=== PATIENT | female | born 1990 | race American Indian/Alaskan Native ===

== ENCOUNTER 2016-07-27 14:20 | Emergency (ER) | payer OTHER ==
[2016-07-27 14:20] VITALS: BMI 21.2
[2016-07-27 14:28] VITALS: TEMP 98.5
[2016-07-27] MEDS ORDERED: Sodium Chloride 0.9% 1,000 ML IV STA (14:41)
--- NOTE | 2016-07-27 14:44 | ED PDOC ---
Arrival/HPI - General Chief Complaint: Abdominal Pain Time Seen by Provider: 07/27/16 14:30 Historian: Patient - History of Present Illness Narrative History of Present Illness (Text): 07/27/16 14:41 26 year old female presents to the emergency department with left lower abdominal pain since this morning. Patient describes it as a crampy pain that does not radiate to other areas. She reports last bowel movement this morning which was normal. LMP 4/5. Denies new foods. Denies urinary changes, vaginal bleeding, fever, nausea, vomiting, or diarrhea. No other complaints at this time. PMD: Dr. Bradley Yuan Time/Duration: 24 hours Symptom Onset: Sudden Symptom Course: Unchanged Modifying Factors (Text): None Associated Symptoms (Text): None Past Medical History - Provider Review Nursing Documentation Reviewed: Yes - Infectious Disease Hx of Infectious Diseases: None - Psychiatric Hx Substance Use: No - Surgical History Hx Section: Yes (x 1) - Anesthesia Hx Anesthesia: Yes Hx Anesthesia Reactions: No Hx Malignant Hyperthermia: No Family/Social History - Physician Review Nursing Documentation Reviewed: Yes Family/Social History: Unknown Family HX Smoking Status: Never Smoked Hx Alcohol Use: Yes Frequency of alcohol use: Socially Hx Substance Use: No Allergies/Home Meds Allergies/Adverse Reactions: Allergies No Known Allergies Allergy (Verified 07/27/16 14:28) Review of Systems - Physician Review All systems were reviewed & negative as marked: Yes - Review of Systems Constitutional: absent: Fevers Cardiovascular: absent: Chest Pain Gastrointestinal: Abdominal Pain (left lower). absent: Stool Changes, Diarrhea , Nausea, Vomiting Genitourinary Female: absent: Dysuria, Frequency, Hematuria, Vaginal Bleeding, Vaginal Discharge Musculoskeletal: absent: Back Pain Physical Exam Vital Signs Reviewed: Yes Vital Signs Temp Pulse Resp BP Pulse Ox 07/27/16 15:44 87 16 97/74 L 96 07/27/16 14:24 98.5 F 86 20 112/72 99 Temperature: Afebrile Blood Pressure: Normal Pulse: Regular Respiratory Rate: Normal Appearance: Positive for: Well-Appearing, Non-Toxic, Uncomfortable Pain Distress: Moderate Mental Status: Positive for: Alert and Oriented X 3 - Systems Exam Head: Present: Atraumatic, Normocephalic Pupils: Present: PERRL Extroacular Muscles: Present: EOMI Conjunctiva: Present: Normal Mouth: Present: Moist Mucous Membranes Neck: Present: Normal Range of Motion Respiratory/Chest: Present: Clear to Auscultation, Good Air Exchange. No: Respiratory Distress, Accessory Muscle Use Cardiovascular: Present: Regular Rate and Rhythm, Normal S1, S2. No: Murmurs Abdomen: Present: Tenderness (left lower quadrant tenderness to palpation), Normal Bowel Sounds. 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 No: Vaginal Discharge, Vaginal Bleeding, Vaginal Lesions, Adenexal Tenderness, Adenexal Mass, Cervical Motion Tendernes Back: Present: Normal Inspection Upper Extremity: Present: Normal Inspection. No: Cyanosis, Edema Lower Extremity: Present: Normal Inspection. No: Edema Neurological: Present: GCS=15, CN II-XII Intact, Speech Normal Skin: Present: Warm, Dry, Normal Color. No: Rashes Psychiatric: Present: Alert, Oriented x 3, Normal Insight, Normal Concentration Medical Decision Making ED Course and Treatment: Impression: 26 year old female presents with left lower quadrant pain since this morning. Differential Diagnosis included but are not limited to: Ovarian torsion vs ovarian cyst/abscess Plan: -- US transvaginal -- IV fluids -- Labs -- Reassess and disposition Prior Visits: Notes and results from previous visits were reviewed. Patient last seen in ED on 11/17/15 with suprapubic pain and discharged home. Progress Notes: 07/27/16 16:[address], wishes to be discharged home. Advised patients on the risks of signing out against medical advice. Leaving Against Medical Advice (AMA): The patient is choosing to leave against medical advice. I have personally explained to the patient that choosing to do so may result in permanent bodily harm or . I have discussed at great length that without further evaluation and monitoring there may be unforeseen circumstances and/or deterioration causing permanent bodily harm or as a result of their choice. The patient is alert, oriented, and shows the mental capacity to make clear decisions regarding the patients health care at this time. The patient continues to wish to leave against medical advice. In light of the patients decision to leave against medical advice, follow-up has been arranged and the patient is aware of the importance to following up as instructed. The patient has been advised that they should return to the emergency room immediately if they change their mind at any time, or if their condition begins to change or worsen in any way. - Lab Interpretations Lab Results: 07/27/16 14:35 07/27/16 14:35 Lab Results 07/27/16 14:35: WBC 8.5 D, RBC 3.94, Hgb 12.3, Hct 35.4 L, MCV 89.8, MCH 31.2, MCHC 34.7, RDW 12.8, Plt Count 257, MPV 10.0, Gran % 78.3 H, Lymph % (Auto) 12.9 L, [place] % (Auto) 8.2 H, Eos % (Auto) 0.4 L, Baso % (Auto) 0.2, Gran # 6.66 H, Lymph # 1.1 L, [place] # 0.7 H, Eos # 0.0, Baso # 0.02, Sodium 138, Potassium 3.9, Chloride 101, Carbon Dioxide 27, Anion Gap 14, BUN 14, Creatinine 0.8, Est GFR ( Amer) > 60, Est GFR (Non-Af Amer) > 60, Random Glucose 77, Calcium 9.4, Total Bilirubin 1.3, AST 27, ALT 26, Alkaline Phosphatase 64, Total Protein 8.0, Albumin 4.0, Globulin 3.9, Albumin/Globulin Ratio 1.0 L 07/27/16 14:30: Urine Color Yellow, Urine Appearance Sl cloudy, Urine pH 7.0, Ur Specific [place] 1.025, Urine Protein 100 H, Urine Glucose (UA) Negative, Urine Ketones Negative, Urine Blood Negative, Urine Nitrate Negative, Urine Bilirubin Negative, Urine Urobilinogen 1.0 H, Ur Leukocyte Esterase Small H, Urine RBC Negative, Urine WBC 2 - 5, Ur Epithelial Cells 4 - 5, Urine Bacteria Few I have reviewed the lab results: Yes Interpretation: All labs normal - RAD Interpretation Narrative RAD Interpretations (Text): US Transvaginal Office Engineer : Theodora Cota MD FINDINGS: UTERUS: Measures 7.6 x 4.2 x 3.4 cm. ENDOMETRIUM: Measures 5 mm in diameter. CERVIX: No cervical abnormality identified. RIGHT OVARY: Measures 2.3 x 1.8 x 2.1 cm. Blood flow is demonstrated to the right ovary. LEFT OVARY: Measures 3.7 x 2.0 x 3.4 cm. 1.3 x 1.4 x 1.5 cm probable follicle/cyst. Blood flow is demonstrated to the left ovary. IMPRESSION: 1.5 cm probable left ovarian follicle/cyst. Otherwise unremarkable study as above. 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 - Medication Orders Current Medication Orders: Sodium Chloride (Sodium Chloride 0.9%) 1,000 mls @ 100 mls/hr IV .Q10H STA Stop: 07/28/16 00:40 Last Admin: 07/27/16 14:54 Dose: 100 MLS/HR eMAR Start Stop Document 07/27/16 14:54 SF (Rec: 07/27/16 14:54 SF [id number]) Intravenous Solution Start Date 07/27/16 Start Time 14:54 End Date 07/27/16 Discontinued Medications Ketorolac Tromethamine (Toradol) 30 mg IVP STAT STA Stop: 07/27/16 14:44 Last Admin: 07/27/16 14:55 Dose: 30 MG IVP Administration Document 07/27/16 14:55 SF (Rec: 07/27/16 14:55 SF [id number]) Charges for Administration # of IVP Administrations 1 - Scribe Statement The provider has reviewed the documentation as recorded by the Susana Velazquez Provider Scribe Attestation: All medical record entries made by the Jaeiblinnette were at my direction and personally dictated by me. I have reviewed the chart and agree that the record accurately reflects my personal performance of the history, physical exam, medical decision making, and the department course for this patient. I have also personally directed, reviewed, and agree with the discharge instructions and disposition. Disposition/Present on Arrival - Present on Arrival Any Indicators Present on Arrival: No History of DVT/PE: No History of Uncontrolled Diabetes: No Urinary Catheter: No History of Decub. Ulcer: No History Surgical Site Infection Following: None - Disposition Have Diagnosis and Disposition been Completed?: Yes Diagnosis: Abdominal pain, Ovarian cyst Disposition Time: 16:12 Patient Plan: Discharge Patient Problems: Current Active Problems Problem Status Diagnosed Abdominal pain Acute Ovarian cyst Acute Condition: IMPROVED Additional Instructions: Ms Andersen, thank you for letting us take care of you today. Your provider was Dr. Mcmillan. You were treated for Left Abdominal Pain. The emergency medical care you received today was directed at your acute symptoms. If you were prescribed any medication, please fill it and take as directed. It may take several days for your symptoms to resolve. Return to the Emergency Department if your symptoms worsen, do not improve, or if you have any other problems. Please contact your doctor or call one of the physicians/clinics you have been referred to that are listed on the Patient Visit Information form that is included in your discharge packet. Bring any paperwork you were given at discharge with you along with any medications you are taking to your follow up visit. Our treatment cannot replace ongoing medical care by a primary care provider (PCP) outside of the emergency department. Thank you for allowing the [facility] team to be part of your care today. If you had an X-Ray or CT scan: A Radiologist will review the ED reading if any change in treatment is needed we will contact you. If you had a blood, urine, or wound culture: It will take several days for the results, if any change in treatment is needed we will contact you. If you had an STI test: It will take 48 hours for the results. Please call after 1 week if you have not heard back. Prescriptions: Ibuprofen [Motrin] 600 mg PO Q6 PRN #30 tab PRN Reason: Pain, Moderate (4-7) Referrals: Bradley Yuan MD [Primary Care Provider] - Follow up with primary Forms: WORK NOTE
[2016-07-27 14:48] LABS: ADD MANUAL DIFF? NO
[2016-07-27 14:51] LABS: BASO # 0.02 K/mm3 (0.0-2.0); BASO % 0.2 % (0.0-3.0); EOS % 0.4 % (1.5-5.0); GRAN # 6.66 (1.4-6.5); GRAN % 78.3 % (50.0-68.0); HEMATOCRIT 35.4 % (36.0-48.0); LYMPH # 1.1 (1.2-3.4); LYMPH % 12.9 % (22.0-35.0); MEAN CELL VOLUME 89.8 fL (80.0-105.0); MEAN CORPUSCULAR HEMOGLOBIN 31.2 pg (25.0-35.0); MEAN CORPUSCULAR HGB CONC 34.7 g/dl (31.0-37.0); MONO # 0.7 (0.1-0.6); MONO % 8.2 % (1.0-6.0); PLATELET COUNT 257 10^3/uL (120.0-450.0); RED CELL DISTRIBUTION WIDTH 12.8 % (11.5-14.5); WHITE BLOOD COUNT 8.5 10^3/ul (4.5-11.0)
[2016-07-27 15:02] LABS: ALKALINE PHOSPHATASE 64 U/L (38-133); ALT/SGPT 26 U/L (7-56); AST/SGOT 27 U/L (15-39); BILIRUBIN,TOTAL 1.3 mg/dL (0.2-1.3); BLOOD UREA NITROGEN 14 mg/dL (7-21); CALCIUM 9.4 mg/dL (8.4-10.5); CARBON DIOXIDE 27 mmol/L (21-33); CHLORIDE 101 mmol/L (98-107); GFR AFRICAN-AMERICAN > 60; GLUCOSE,RANDOM 77 mg/dL (70-110); POTASSIUM 3.9 mmol/L (3.6-5.0); SODIUM 138 mmol/L (132-148)
[2016-07-27 15:02] LABS: URINE BILIRUBIN NEGATIVE (NEGATIVE); URINE BLOOD NEGATIVE (NEGATIVE); URINE GLUCOSE (UA) NEGATIVE (NEGATIVE); URINE KETONE NEGATIVE (NEGATIVE); URINE LEUKOCYTE ESTERASE SMALL Leu/uL (NEGATIVE); URINE PROTEIN 100 mg/dL (<30 mg/dL)
[2016-07-27 15:07] LABS: URINE APPEARANCE SL CLOUDY (CLEAR); URINE COLOR YELLOW (YELLOW)
[2016-07-27 15:14] LABS: URINE BACTERIA FEW (NEG); URINE RBC NEGATIVE /hpf (0-2)
[2016-07-27 15:45] VITALS: BP 97/74; PULSE 87; RESP 16
--- NOTE | 2016-07-27 15:46 | US ---
HISTORY: LLQ tender r/o torsion r/o ovarian cyst/ abscess COMPARISON: Transvaginal pelvic ultrasound performed 11/17/15 TECHNIQUE: Real-time transabdominal pelvic ultrasound was performed. In addition a transvaginal pelvic ultrasound was necessary to better depict pelvic anatomy FINDINGS: UTERUS: Measures 7.6 x 4.2 x 3.4 cm. ENDOMETRIUM: Measures 5 mm in diameter. CERVIX: No cervical abnormality identified. RIGHT OVARY: Measures 2.3 x 1.8 x 2.1 cm. Blood flow is demonstrated to the right ovary. LEFT OVARY: Measures 3.7 x 2.0 x 3.4 cm. 1.3 x 1.4 x 1.5 cm probable follicle/cyst. Blood flow is demonstrated to the left ovary. FREE FLUID: No significant free fluid noted. OTHER FINDINGS: None. IMPRESSION: 1.5 cm probable left ovarian follicle/cyst. Otherwise unremarkable study as above.
[2016-07-27 16:17] VITALS: O2SAT 98
== END 2016-07-27 16:17 | disposition left against medical advice (07) ==
LOC: ED 14:20
DX: R10.32 Left lower quadrant pain (principal); N83.202 Unspecified ovarian cyst, left side
CPT/HCPCS: 76830; 80053; 81001; 85025; 87086; 87491; 87591; 96374; 99285; J1885; J7040

== ENCOUNTER 2017-01-05 19:37 | Emergency (ER) | payer OTHER ==
[2017-01-05 19:37] VITALS: BMI 21.2
[2017-01-05 19:52] VITALS: RESP 18; TEMP 98.3
[2017-01-05] MEDS ORDERED: Sodium Chloride 0.9% 1,000 ML IV STA (20:15)
[2017-01-05 20:30] LABS: URINE BILIRUBIN NEGATIVE (NEGATIVE); URINE BLOOD NEGATIVE (NEGATIVE); URINE GLUCOSE (UA) NEGATIVE (NEGATIVE); URINE KETONE NEGATIVE (NEGATIVE); URINE LEUKOCYTE ESTERASE NEGATIVE Leu/uL (NEGATIVE); URINE PROTEIN NEGATIVE mg/dL (<30 mg/dL); URINE UROBILINOGEN 0.2 E.U./dL (<1 E.U./dL)
[2017-01-05 20:41] LABS: URINE APPEARANCE CLEAR (CLEAR); URINE COLOR YELLOW (YELLOW)
[2017-01-05 20:56] LABS: HEMATOCRIT 33.8 % (36.0-48.0); MEAN CELL VOLUME 89.4 fl (80.0-105.0); MEAN CORPUSCULAR HGB CONC 34.6 g/dl (31.0-37.0); MEAN PLATELET VOLUME 9.7 fl (7.0-11.0); RED CELL DISTRIBUTION WIDTH 12.4 % (11.5-14.5); WHITE BLOOD COUNT 4.2 10^3/ul (4.5-11.0)
[2017-01-05 21:02] LABS: ALB/GLOB RATIO 1.3 (1.1-1.8); ALKALINE PHOSPHATASE 48 U/L (38-126); ALT/SGPT 14 U/L (7-56); AST/SGOT 25 U/L (14-36); BILIRUBIN,TOTAL 0.8 mg/dL (0.2-1.3); BLOOD UREA NITROGEN 14 mg/dL (7-21); CALCIUM 8.6 mg/dL (8.4-10.5); CARBON DIOXIDE 28 mmol/L (21-33); CHLORIDE 103 mmol/L (98-107); GFR AFRICAN-AMERICAN > 60; GLUCOSE,RANDOM 79 mg/dL (70-110); INR 0.96 (0.93-1.08); LIPASE 65 U/L (23-300); PARTIAL THROMBOPLASTIN TIME 29.5 Seconds (23.7-30.8); POTASSIUM 3.8 mmol/L (3.6-5.0); SODIUM 138 mmol/L (132-148); TOTAL PROTEIN 6.5 g/dL (5.8-8.3)
[2017-01-05] MEDS ORDERED: Iohexol 350 MG/100 ML VIAL ONE (21:26)
--- NOTE | 2017-01-05 21:32 | ED PDOC ---
Arrival/HPI - General Chief Complaint: Abdominal Pain Time Seen by Provider: 01/05/17 20:07 Historian: Patient - History of Present Illness Narrative History of Present Illness (Text): 01/05/17 20:10 Jessica Andersen is a 26 year old female who presents to the Emergency department complaining of constant right lower abdominal discomfort since yesterday afternoon. Patient states she has a history of ovarian cysts on that side and notes she gets this pain every so often. Patient denies any nausea, vomiting, diarrhea, urinary symptoms, vaginal discharge/bleeding, trauma, or any other complaints. PMD: Dr. Yuan Symptom Onset: Gradual Symptom Course: Unchanged Activities at Onset: Light Context: Home Past Medical History - Provider Review Nursing Documentation Reviewed: Yes - Infectious Disease Hx of Infectious Diseases: None - Reproductive Menopause: No - Cardiac Hx Cardiac Disorders: No - Pulmonary Hx Respiratory Disorders: No - Neurological Hx Neurological Disorder: No - HEENT Hx HEENT Disorder: No - Renal Hx Renal Disorder: No - Endocrine/Metabolic Hx Endocrine Disorders: No - Hematological/Oncological Hx Blood Disorders: No - Integumentary Hx Dermatological Disorder: No - Musculoskeletal/Rheumatological Hx Musculoskeletal Disorders: No - Gastrointestinal Hx Gastrointestinal Disorders: No - Genitourinary/Gynecological Hx Genitourinary Disorders: No - Psychiatric Hx Psychophysiologic Disorder: No Hx Substance Use: No - Surgical History Hx Section: Yes (x 1 2012) - Anesthesia Hx Anesthesia: Yes Hx Anesthesia Reactions: No Hx Malignant Hyperthermia: No Family/Social History - Physician Review Nursing Documentation Reviewed: Yes Family/Social History: Unknown Family HX Smoking Status: Never Smoked Hx Alcohol Use: Yes Hx Substance Use: No Allergies/Home Meds Allergies/Adverse Reactions: Allergies No Known Allergies Allergy (Verified 01/05/17 19:56) Review of Systems - Physician Review All systems were reviewed & negative as marked: Yes - Review of Systems Constitutional: Normal. absent: Fevers Eyes: Normal ENT: Normal Respiratory: Normal. absent: SOB, Cough Cardiovascular: Normal. absent: Chest Pain Gastrointestinal: Abdominal Pain. absent: Diarrhea, Nausea, Vomiting Genitourinary Female: Normal. absent: Dysuria, Frequency, Hematuria, Urine Output Changes Musculoskeletal: Normal. absent: Back Pain, Neck Pain Skin: Normal. absent: Rash Neurological: Normal. absent: Headache, Dizziness Endocrine: Normal Hemo/Lymphatic: Normal Psychiatric: Normal Physical Exam Vital Signs Reviewed: Yes Vital Signs Temp Pulse Resp BP Pulse Ox 01/05/17 23:37 84 18 137/72 99 01/05/17 19:49 98.3 F 80 18 108/56 L 100 Temperature: Afebrile Blood Pressure: Normal Pulse: Regular Respiratory Rate: Normal Appearance: Positive for: Well-Appearing, Non-Toxic, Comfortable Pain Distress: None Mental Status: Positive for: Alert and Oriented X 3 - Systems Exam Head: Present: Atraumatic, Normocephalic Pupils: Present: PERRL Extroacular Muscles: Present: EOMI Conjunctiva: Present: Normal Mouth: Present: Moist Mucous Membranes Neck: Present: Normal Range of Motion Respiratory/Chest: Present: Clear to Auscultation, Good Air Exchange. No: Respiratory Distress, Accessory Muscle Use Cardiovascular: Present: Regular Rate and Rhythm, Normal S1, S2. No: Murmurs Abdomen: Present: Tenderness (mild right lower), Normal Bowel Sounds. No: Distention, Peritoneal Signs, Rebound Back: Present: Normal Inspection Upper Extremity: Present: Normal Inspection. No: Cyanosis, Edema Lower Extremity: Present: Normal Inspection. No: Edema Neurological: Present: GCS=15, CN II-XII Intact, Speech Normal Skin: Present: Warm, Dry, Normal Color. No: Rashes Psychiatric: Present: Alert, Oriented x 3, Normal Insight, Normal Concentration Medical Decision Making ED Course and Treatment: 01/05/17 20:10 Impression: 26 year old fenmale complaining of constant RLQ discomfort since yesterday. Differential Diagnosis included but are not limited to: Plan: -- CT Abdomen and Pelvis with IV contrast -- Labs, lipase -- Urinalysis, urine cultures -- IV fluids -- Reassess and disposition Prior Visits: Notes and results from previous visits were reviewed. On 07/27/2016, pt was seen in the Emergency department for LLQ pain. Pt was discharged home on Motrin. Progress Notes: 01/05/17 22:31 Reviewed radiology, CT Abdomen and Pelvis shows: Lower thorax: No acute findings. ABDOMEN: Liver: Few too small to characterize lesions. Gallbladder and bile ducts: No calcified stones. No ductal dilation. Pancreas: No ductal dilation. No mass. Spleen: No splenomegaly. Adrenals: No mass. Kidneys and ureters: No mass. No hydronephrosis. Stomach and bowel: No definite mural thickening. No obstruction. Appendix: Normal caliber. No definite inflammation. PELVIS: Bladder: Unremarkable. Reproductive: 3.0 x 3.2 x 3.4 cm hypodense lesion within RIGHT ovary. ABDOMEN and PELVIS: Intraperitoneal space: Small free fluid within pelvis. No free air. Bones/joints: No acute fracture. Soft tissues: Unremarkable. Vasculature: Unremarkable. No aneurysm. Lymph nodes: No pathologically enlarged lymph nodes. IMPRESSION: 1. Probable RIGHT ovarian cyst. Consider ultrasound. 2. Incidental/non-acute findings are described above. 01/06/17 00:07 Reviewed sono, US Pelvis, Transabdominal shows: Uterus/cervix: Uterus measures 10.9 x 4.2 x 5.2 cm in size. No myometrial mass. Endometrium: 0.5 cm in thickness. Right ovary: 2.8 x 5.0 x 3.7 cm in size. 3.2 x 2.5 x 3.4 cm heterogeneous, predominantly hypoechoic lesion with internal echoes. Small follicles. Normal flow. Left ovary: 3.0 x 3.2 x 1.9 cm in size. No mass. Small follicles. Normal flow. Free fluid: Small free fluid within pelvis. Bladder: Unremarkable as visualized. IMPRESSION: 1. Complex RIGHT ovarian lesion. DDX: Hemorrhagic cyst, endometrioma, TOA, ectopic , neoplasm. Clinical correlation and follow up are recommended. US Pelvis, Transvaginal shows: Uterus/cervix: Uterus measures 10.9 x 4.2 x 5.2 cm in size. No myometrial mass. Endometrium: 0.5 cm in thickness. Right ovary: 2.8 x 5.0 x 3.7 cm in size. 3.2 x 2.5 x 3.4 cm heterogeneous, predominantly hypoechoic lesion with internal echoes. Small follicles. Normal flow. Left ovary: 3.0 x 3.2 x 1.9 cm in size. No mass. Small follicles. Normal flow. Free fluid: Small free fluid within pelvis. Bladder: Empty bladder which cannot be evaluated with this probe. IMPRESSION: 1. Complex RIGHT ovarian lesion. DDX: Hemorrhagic cyst, endometrioma, TOA, ectopic , neoplasm. Clinical correlation and follow up are recommended. 01/06/17 00:30 On reevaluation the patient feels better and is in no acute distress. I have discussed the results and plan with the patient, who expresses understanding. Patient given the opportunity to ask question, all questions were answered and there is agreement with the plan to discharge the patient home. Patient is stable for discharge. Patient was instructed to follow up with physician/clinic in 1-2 days or return if symptoms persist/worsen or new concerning symptoms arise. - Lab Interpretations Lab Results: 01/05/17 20:34 01/05/17 20:34 Lab Results 01/05/17 20:34: PT 10.4, INR 0.96, APTT 29.5 01/05/17 20:34: WBC 4.2 L D, RBC 3.78, Hgb 11.7 L, Hct 33.8 L, MCV 89.4, MCH 31.0, MCHC 34.6, RDW 12.4, Plt Count 238, MPV 9.7 01/05/17 20:34: Sodium 138, Potassium 3.8, Chloride 103, Carbon Dioxide 28, Anion Gap 11, BUN 14, Creatinine 0.8, Est GFR ( Amer) > 60, Est GFR (Non- Af Amer) > 60, Random Glucose 79, Calcium 8.6, Total Bilirubin 0.8, AST 25, ALT 14, Alkaline Phosphatase 48, Total Protein 6.5, Albumin 3.7, Globulin 2.8, Albumin/Globulin Ratio 1.3, Lipase 65 01/05/17 20:11: Urine Color Yellow, Urine Appearance Clear, Urine pH 6.0, Ur Specific [place] 1.025, Urine Protein Negative, Urine Glucose (UA) Negative, Urine Ketones Negative, Urine Blood Negative, Urine Nitrate Negative, Urine Bilirubin Negative, Urine Urobilinogen 0.2, Ur Leukocyte Esterase Negative - RAD Interpretation Radiology Orders: 01/05/17 21:05 ABD & PELVIS IV CONTRAST ONLY [CT] Stat 01/05/17 22:38 TRANSVAGINAL [US] Stat - Medication Orders Current Medication Orders: Discontinued Medications Sodium Chloride (Sodium Chloride 0.9%) 1,000 mls @ 999 mls/hr IV .Q1H1M STA Stop: 01/05/17 21:15 Last Admin: 01/05/17 20:34 Dose: 999 mls/hr eMAR Start Stop Document 01/05/17 20:34 DON (Rec: 01/05/17 20:35 DON [id number]) Intravenous Solution Start Date 01/05/17 Start Time 20:34 End Date 01/05/17 End time 21:34 Total Infusion Time 60 Iohexol (Omnipaque 350 100 Ml) Confirm Administered Dose 350 mg .ROUTE .STK-MED ONE Stop: 01/05/17 21:27 Ketorolac Tromethamine (Toradol) 30 mg IVP ONCE ONE Stop: 01/06/17 00:34 Last Admin: 01/06/17 00:37 Dose: 30 mg MAR Pain Assessment Document 01/06/17 00:37 DON (Rec: 01/06/17 00:40 DON [id number]) Pain Reassessment Is this a pain reassessment? Yes IVP Administration Document 01/06/17 00:37 DON (Rec: 01/06/17 00:40 DON [id number]) Charges for Administration # of IVP Administrations 1 - Scribe Statement The provider has reviewed the documentation as recorded by the Susana Buenrostro Provider Scribe Attestation: All medical record entries made by the Scribe were at my direction and personally dictated by me. I have reviewed the chart and agree that the record accurately reflects my personal performance of the history, physical exam, medical decision making, and the department course for this patient. I have also personally directed, reviewed, and agree with the discharge instructions and disposition. Disposition/Present on Arrival - Present on Arrival Any Indicators Present on Arrival: No History of DVT/PE: No History of Uncontrolled Diabetes: No Urinary Catheter: No History of Decub. Ulcer: No History Surgical Site Infection Following: Obstetrical/Gynecological Surgery - Disposition Have Diagnosis and Disposition been Completed?: Yes Diagnosis: Ovarian cyst Disposition: HOME/ ROUTINE Disposition Time: 00:31 Patient Plan: Discharge Condition: STABLE Discharge Instructions (ExitCare): Ovarian Cyst (ED) Additional Instructions: Take meds as prescribed/follow up with your tableau developer this week/any worsening symptoms return to the emergency room Prescriptions: Ibuprofen [Motrin] 600 mg PO Q6 PRN #16 tab PRN Reason: Pain, Moderate (4-7) Referrals: Bradley Yuan MD [Primary Care Provider] - Follow up with primary Forms: [employer] ([employer]), WORK NOTE
--- NOTE | 2017-01-05 22:22 | CT ---
EXAM: CT Abdomen and Pelvis With Intravenous Contrast CLINICAL HISTORY: 26 years old, female; Pain; Abdominal pain; Localized; Right lower quadrant (rlq); Additional info: Right lower abdominal pain TECHNIQUE: Axial computed tomography images of the abdomen and pelvis with intravenous contrast. All CT scans at this facility use one or more dose reduction techniques, viz.: automated exposure control; ma/kV adjustment per patient size (including targeted exams where dose is matched to indication; i.e. head); or iterative reconstruction technique. Coronal and sagittal reformatted images were created and reviewed. CONTRAST: 100 mL of OMNI administered intravenously. COMPARISON: US - TRANSVAGINAL 07/27/2016 3:01:26 PM FINDINGS: Lower thorax: No acute findings. ABDOMEN: Liver: Few too small to characterize lesions. Gallbladder and bile ducts: No calcified stones. No ductal dilation. Pancreas: No ductal dilation. No mass. Spleen: No splenomegaly. Adrenals: No mass. Kidneys and ureters: No mass. No hydronephrosis. Stomach and bowel: No definite mural thickening. No obstruction. Appendix: Normal caliber. No definite inflammation. PELVIS: Bladder: Unremarkable. Reproductive: 3.0 x 3.2 x 3.4 cm hypodense lesion within RIGHT ovary. ABDOMEN and PELVIS: Intraperitoneal space: Small free fluid within pelvis. No free air. Bones/joints: No acute fracture. Soft tissues: Unremarkable. Vasculature: Unremarkable. No aneurysm. Lymph nodes: No pathologically enlarged lymph nodes. IMPRESSION: 1. Probable RIGHT ovarian cyst. Consider ultrasound. 2. Incidental/non-acute findings are described above.
--- NOTE | 2017-01-05 23:26 | US ---
EXAM: US Pelvis Complete, Transabdominal CLINICAL HISTORY: 26 years old, female; Pain; Pelvic pain TECHNIQUE: Real-time transabdominal pelvic ultrasound (complete) with image documentation. COMPARISON: US - TRANSVAGINAL 07/27/2016 3:01:26 PM FINDINGS: Uterus/cervix: Uterus measures 10.9 x 4.2 x 5.2 cm in size. No myometrial mass. Endometrium: 0.5 cm in thickness. Right ovary: 2.8 x 5.0 x 3.7 cm in size. 3.2 x 2.5 x 3.4 cm heterogeneous, predominantly hypoechoic lesion with internal echoes. Small follicles. Normal flow. Left ovary: 3.0 x 3.2 x 1.9 cm in size. No mass. Small follicles. Normal flow. Free fluid: Small free fluid within pelvis. Bladder: Unremarkable as visualized. IMPRESSION: 1. Complex RIGHT ovarian lesion. DDX: Hemorrhagic cyst, endometrioma, TOA, ectopic , neoplasm. Clinical correlation and follow up are recommended. EXAM: US Pelvis, Transvaginal CLINICAL HISTORY: 26 years old, female; Pain; Pelvic pain TECHNIQUE: Real-time transvaginal pelvic ultrasound (complete) with image documentation. Transvaginal imaging was used for better evaluation of the endometrium and adnexa. COMPARISON: US - TRANSVAGINAL 07/27/2016 3:01:26 PM FINDINGS: Uterus/cervix: Uterus measures 10.9 x 4.2 x 5.2 cm in size. No myometrial mass. Endometrium: 0.5 cm in thickness. Right ovary: 2.8 x 5.0 x 3.7 cm in size. 3.2 x 2.5 x 3.4 cm heterogeneous, predominantly hypoechoic lesion with internal echoes. Small follicles. Normal flow. Left ovary: 3.0 x 3.2 x 1.9 cm in size. No mass. Small follicles. Normal flow. Free fluid: Small free fluid within pelvis. Bladder: Empty bladder which cannot be evaluated with this probe.
[2017-01-06 00:57] VITALS: BP 137/72; PULSE 84; O2SAT 99
== END 2017-01-06 00:57 | disposition home or self-care (01) ==
LOC: ED 19:37
DX: N83.201 Unspecified ovarian cyst, right side (principal)
CPT/HCPCS: 74177; 76830; 80053; 81003; 83690; 85027; 85610; 85730; 87086; 96360; 96374; 99283; J1885; J7040; Q9967

== ENCOUNTER 2017-06-11 00:37 | Emergency (ER) | payer SELFPAY ==
[2017-06-11 00:46] VITALS: BMI 22.1
[2017-06-11 00:49] VITALS: RESP 18; TEMP 98.4; O2SAT 100
--- NOTE | 2017-06-11 01:05 | ED PDOC ---
Arrival/HPI - General Chief Complaint: Chest Pain Time Seen by Provider: 06/11/17 00:49 Historian: Patient - History of Present Illness Narrative History of Present Illness (Text): 06/11/17 01:04 Jessica Andersen is a 27 year old female who presents to the Emergency department complaining of chest pain. Patient states she has been experiencing upper chest pain for 1 week, worsening tonight. Patient notes pain is worse with deep inspiration. Patient denies any fever, chills, shortness of breath, nausea, vomiting, diarrhea, urinary symptoms, back pain, neck pain, headache, dizziness , or any other complaints. Time/Duration: 1 week Symptom Onset: Gradual Symptom Course: Unchanged Activities at Onset: Light Context: Home Past Medical History - Provider Review Nursing Documentation Reviewed: Yes - Infectious Disease Hx of Infectious Diseases: None - Cardiac Hx Cardiac Disorders: No - Pulmonary Hx Respiratory Disorders: No - Neurological Hx Neurological Disorder: No - HEENT Hx HEENT Disorder: No - Renal Hx Renal Disorder: No - Endocrine/Metabolic Hx Endocrine Disorders: No - Hematological/Oncological Hx Blood Disorders: No - Integumentary Hx Dermatological Disorder: No - Musculoskeletal/Rheumatological Hx Musculoskeletal Disorders: No - Gastrointestinal Hx Gastrointestinal Disorders: No - Genitourinary/Gynecological Hx Genitourinary Disorders: No - Psychiatric Hx Psychophysiologic Disorder: No Hx Substance Use: No - Surgical History Hx Section: Yes (x 1 2012) - Anesthesia Hx Anesthesia: Yes Hx Anesthesia Reactions: No Hx Malignant Hyperthermia: No Family/Social History - Physician Review Nursing Documentation Reviewed: Yes Family/Social History: Unknown Family HX Smoking Status: Never Smoked Hx Alcohol Use: Yes Hx Substance Use: No Allergies/Home Meds Allergies/Adverse Reactions: Allergies No Known Allergies Allergy (Verified 06/11/17 00:46) Home Medications: Home Meds Medication Instructions Recorded Confirmed No Known Home Med 06/11/17 06/11/17 Review of Systems - Physician Review All systems were reviewed & negative as marked: Yes - Review of Systems Constitutional: Normal. absent: Fevers Eyes: Normal ENT: Normal Respiratory: Normal. absent: SOB, Cough Cardiovascular: Chest Pain Gastrointestinal: Normal. absent: Abdominal Pain, Diarrhea, Nausea, Vomiting Genitourinary Female: Normal. absent: Dysuria, Frequency, Hematuria, Urine Output Changes Musculoskeletal: Normal. absent: Back Pain, Neck Pain Skin: Normal. absent: Rash Neurological: Normal. absent: Headache, Dizziness Endocrine: Normal Hemo/Lymphatic: Normal Psychiatric: Normal Physical Exam Vital Signs Reviewed: Yes Vital Signs Temp Pulse Resp BP Pulse Ox 06/11/17 02:58 60 18 110/67 100 06/11/17 00:49 98.4 F 63 18 111/66 100 06/11/17 00:48 98.4 F 63 18 111/66 100 Temperature: Afebrile Blood Pressure: Normal Pulse: Regular Respiratory Rate: Normal Appearance: Positive for: Well-Appearing, Non-Toxic, Comfortable Pain Distress: None Mental Status: Positive for: Alert and Oriented X 3 - Systems Exam Head: Present: Atraumatic, Normocephalic Pupils: Present: PERRL Extroacular Muscles: Present: EOMI Conjunctiva: Present: Normal Mouth: Present: Moist Mucous Membranes Neck: Present: Normal Range of Motion Respiratory/Chest: Present: Clear to Auscultation, Good Air Exchange. No: Respiratory Distress, Accessory Muscle Use Cardiovascular: Present: Regular Rate and Rhythm, Normal S1, S2. No: Murmurs Abdomen: Present: Normal Bowel Sounds. No: Tenderness, Distention, Peritoneal Signs Back: Present: Normal Inspection Upper Extremity: Present: Normal Inspection. No: Cyanosis, Edema Lower Extremity: Present: Normal Inspection. No: Edema Neurological: Present: GCS=15, CN II-XII Intact, Speech Normal Skin: Present: Warm, Dry, Normal Color. No: Rashes Psychiatric: Present: Alert, Oriented x 3, Normal Insight, Normal Concentration Medical Decision Making ED Course and Treatment: 06/11/17 01:04 Impression: 27 year old female complaining of upper chest pain, worse with deep inspiration. Plan: -- EKG -- Labs, cardiac enzymes -- UA -- Reassess and disposition Progress Notes: Reviewed EKG, NSR at [address]-segment elevations or depressions, no T-wave inversions, normal intervals. 06/11/17 02:45 On re-evaluation, patient feels better and is in no acute distress. I have discussed the results and plan with the patient, who expresses understanding. Patient in agreement with plan to be discharged home. Patient is stable for discharge. Patient was instructed to follow up with physician or return if symptoms worsen or new concerning symptoms arise. - Lab Interpretations Lab Results: 06/11/17 01:05 06/11/17 01:05 Lab Results 06/11/17 02:35: Urine Color Yellow, Urine Appearance Clear, Urine pH 8.0, Ur Specific [place] 1.015, Urine Protein Trace H, Urine Glucose (UA) Negative, Urine Ketones Negative, Urine Blood Negative, Urine Nitrate Negative, Urine Bilirubin Negative, Urine Urobilinogen 1.0 H, Ur Leukocyte Esterase Negative, Urine RBC 0 - 2, Urine WBC 0 - 2, Ur Epithelial Cells 3 - 4, Urine Bacteria Few 06/11/17 01:05: Sodium 139, Potassium 3.9, Chloride 106, Carbon Dioxide 24, Anion Gap 13, BUN 17, Creatinine 1.0, Est GFR ( Amer) > 60, Est GFR (Non- Af Amer) > 60, Random Glucose 88, Calcium 8.8, Magnesium 2.0, Total Bilirubin 0.8, AST 26, ALT 26, Alkaline Phosphatase 40, Lactate Dehydrogenase 409, Total Creatine Kinase 235 H, CK-MB (CK-2) 1.0, CK-MB (CK-2) % Cancelled, Troponin I < 0.01, Total Protein 6.3, Albumin 3.5, Globulin 2.8, Albumin/Globulin Ratio 1.3 06/11/17 01:05: WBC 4.0 L, RBC 3.52, Hgb 10.6 L, Hct 32.3 L, MCV 91.8, MCH 30.1 , MCHC 32.8, RDW 13.1, Plt Count 253, MPV 10.0, Gran % 41.0 L, Lymph % (Auto) 50.0 H, [place] % (Auto) 8.0 H, Eos % (Auto) 0.0 L, Baso % (Auto) 1.0, Gran # 1.63 , Lymph # (Auto) 2.0, [place] # (Auto) 0.3, Eos # (Auto) 0.0, Baso # (Auto) 0.04 I have reviewed the lab results: Yes - EKG Interpretation Interpreted by ED Physician: Yes Type: 12 lead EKG - Medication Orders Current Medication Orders: Discontinued Medications Ketorolac Tromethamine (Toradol) 30 mg IVP ONCE ONE Stop: 06/11/17 02:45 Last Admin: 06/11/17 02:51 Dose: 30 mg MAR Pain Assessment Document 06/11/17 02:51 CNR (Rec: 06/11/17 02:51 CNR [facility] [id number] Pain Reassessment Is this a pain reassessment? No IVP Administration Document 06/11/17 02:51 CNR (Rec: 06/11/17 02:51 CNR [facility] [id number]) Charges for Administration # of IVP Administrations 1 - Scribe Statement The provider has reviewed the documentation as recorded by the Scriblinnette Buenrostro All medical record entries made by the Scribe were at my direction and personally dictated by me. I have reviewed the chart and agree that the record accurately reflects my personal performance of the history, physical exam, medical decision making, and the department course for this patient. I have also personally directed, reviewed, and agree with the discharge instructions and disposition. Disposition/Present on Arrival - Present on Arrival Any Indicators Present on Arrival: No History of DVT/PE: No History of Uncontrolled Diabetes: No Urinary Catheter: No History of Decub. Ulcer: No History Surgical Site Infection Following: None - Disposition Have Diagnosis and Disposition been Completed?: Yes Diagnosis: Costochondritis Disposition: HOME/ ROUTINE Disposition Time: 03:00 Condition: GOOD Discharge Instructions (ExitCare): Costochondritis (DC) Additional Instructions: advil as needed for pain Forms: [facility] (Kosovan), WORK NOTE
[2017-06-11 01:48] LABS: ALB/GLOB RATIO 1.3 (1.1-1.8); ALBUMIN 3.5 g/dL (3.0-4.8); ALT/SGPT 26 U/L (7-56); AST/SGOT 26 U/L (14-36); BLOOD UREA NITROGEN 17 mg/dL (7-21); CALCIUM 8.8 mg/dL (8.4-10.5); GFR AFRICAN-AMERICAN > 60; GFR NON-AFRICAN AMERICAN > 60
[2017-06-11 01:49] LABS: BASO # 0.04 K/mm3 (0.0-2.0); GRAN # 1.63 (1.4-6.5); HEMOGLOBIN 10.6 g/dL (12.0-16.0); MEAN CELL VOLUME 91.8 fl (80.0-105.0); MEAN CORPUSCULAR HEMOGLOBIN 30.1 pg (25.0-35.0); MEAN CORPUSCULAR HGB CONC 32.8 g/dl (31.0-37.0); MONO # 0.3 (0.1-0.6); RBC 3.52 10^6/uL (3.5-6.1); RED CELL DISTRIBUTION WIDTH 13.1 % (11.5-14.5)
[2017-06-11 02:00] LABS: TROPONIN I < 0.01 ng/mL
[2017-06-11 02:59] VITALS: BP 110/67; PULSE 60
[2017-06-11 03:27] LABS: URINE BILIRUBIN NEGATIVE (NEGATIVE); URINE BLOOD NEGATIVE (NEGATIVE); URINE GLUCOSE (UA) NEGATIVE (NEGATIVE); URINE LEUKOCYTE ESTERASE NEGATIVE Leu/uL (NEGATIVE); URINE NITRATE NEGATIVE (NEGATIVE); URINE PROTEIN TRACE mg/dL (<30 mg/dL)
[2017-06-11 03:34] LABS: URINE APPEARANCE CLEAR (CLEAR); URINE COLOR YELLOW (YELLOW)
[2017-06-11 04:07] LABS: URINE BACTERIA FEW (NEG); URINE RBC 0 - 2 /hpf (0-2); URINE WBC 0 - 2 /hpf (0-6)
--- NOTE | 2017-06-11 10:19 | CARD ---
APPROVED REPORT EKG Measurement Heart [id number] <Conclusion> Normal sinus rhythm Normal ECG
== END 2017-06-11 03:01 | disposition home or self-care (01) ==
LOC: ED 00:37
DX: M94.0 Chondrocostal junction syndrome [Tietze] (principal)
CPT/HCPCS: 80053; 81001; 82550; 82553; 83615; 83735; 84484; 85025; 93005; 96374; 99283; J1885